=== PATIENT | female | born 1980 | race Caucasian/White ===

== ENCOUNTER 2016-08-10 13:36 | Emergency (ER) | payer OTHER ==
[~2016-08-10 13:36] MED LIST: DICL50TA2 PO; NORT0.5T2 PO; OCUF0.3D LEFT EYE; PROM25TA5 PO; PROT40TA PO
[2016-08-10 13:39] VITALS: BP 184/129; PULSE 84; RESP 16; TEMP 98.3; O2SAT 98
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
[2016-08-10] MEDS ORDERED: MOTR200T4 PO (15:56)
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
== END 2016-08-10 17:31 | disposition home or self-care (01) ==
LOC: NEPK 13:36
DX: S16.1XXA Strain of muscle, fascia and tendon at neck level, initial encounter (principal); I10 Essential (primary) hypertension; V49.40XA Driver injured in collision with unspecified motor vehicles in traffic accident, initial encounter; Y92.410 Unspecified street and highway as the place of occurrence of the external cause
CPT/HCPCS: 72125; 84703; 99284; L0150